=== PATIENT | male | born 1980 | race African-American/Black ===

== ENCOUNTER 2024-11-25 12:59 | Emergency (ER) | payer BC ==
[~2024-11-25] VITALS: Ht 165.1 cm; Wt 88.9 kg
[2024-11-25] MEDS ORDERED: ACET1TAB23 PO (14:27)
[2024-11-25 14:39] VITALS: BP 121/65; TEMP 98.9; O2SAT 98
== END 2024-11-25 14:40 | disposition home or self-care (01) ==
LOC: ER 12:59
DX: M79.10 Myalgia, unspecified site (principal); Z88.6 Allergy status to analgesic agent; V43.62XA Car passenger injured in collision with other type car in traffic accident, initial encounter; Y93.89 Activity, other specified; Y92.488 Other paved roadways as the place of occurrence of the external cause; Y99.8 Other external cause status
CPT/HCPCS: A4606; A4663